=== PATIENT | female | born 1985 | race Caucasian/White ===

== ENCOUNTER → 2022-04-17 11:38 | Outpatient (CLI) | payer OTHER, SELFPAY ==
[2022-04-17 15:06] LABS: Chol/HDL Ratio 7.5 (1-3.5); Cholesterol 294 mg/dl (140-200); HDL Cholesterol 39 mg/dl (40-60); Triglycerides 234 mg/dl (30-150); VLDL Cholesterol 47 mg/dL (0-40)
[2022-04-17 15:16] LABS: Direct LDL Cholesterol 202.43 mg/dL (100-129)
[2022-04-17 15:23] LABS: 25-OH Vitamin D, Total 14.5 ng/mL (30-100); Free T4 (Free Thyroxine) 0.86 ng/dl (0.78-2.19)
[2022-04-17 15:38] LABS: Thyroid Stimulating Hormone 2.29 uIU/mL (0.465-4.68)
== END ==
PROVIDERS: PCP Emergency Medicine; Visit Provider Emergency Medicine
DX: R53.83 Other fatigue (principal); R31.9 Hematuria, unspecified; E55.9 Vitamin D deficiency, unspecified; Z76.89 Persons encountering health services in other specified circumstances
CPT/HCPCS: 80061; 82306; 84439; 84443; 87086

== ENCOUNTER → 2022-06-21 23:29 | Outpatient (CLI) | payer OTHER, SELFPAY ==
[2022-06-21 19:41] LABS: Phencyclidine Screen,Urine Negative ng/ml (<25)
[2022-06-21 19:52] LABS: Barbiturates Screen,Urine Negative ng/ml (<200)
[2022-06-21 19:53] LABS: Benzodiazepines Screen,Urine Positive ng/ml (<200)
[2022-06-21 19:54] LABS: Cannabinoid Screen,Urine Negative ng/ml (<50); Opiate Screen,Urine Negative ng/ml (<300)
[2022-06-21 19:55] LABS: Cocaine Screen,Urine Negative ng/ml (<300); Methadone Screen,Urine Negative ng/ml (<300)
[2022-06-28 21:42] LABS: Amphetamine Positive (.); Amphetamine (GC/MS) 2191 ng/mL (Cutoff=500); Amphetamines Positive (.); Methamphetamine Positive (.); Methamphetamine (GC/MS) >3000 ng/mL (Cutoff=500)
== END ==
PROVIDERS: PCP Emergency Medicine; Visit Provider Emergency Medicine
DX: G89.29 Other chronic pain (principal)
CPT/HCPCS: 80305; 80324